=== PATIENT | male | born 1990 | race Asian ===

== ENCOUNTER 2017-02-01 07:22 | Emergency (ER) | payer OTHER ==
[2017-02-01 07:26] VITALS: BP 156/98
[2017-02-01] MEDS ORDERED: DEXAMETHASONE 10 MG/ML VIAL PO STA (08:03)
[2017-02-01] MEDS ORDERED: HYDROcod/ACETAM 5/325 MG TABLET PO STA (08:03)
[2017-02-01] MEDS ORDERED: AMOXICILLIN 250 MG CAPSULE PO STA (08:03)
--- NOTE | 2017-02-01 08:08 | ED Physician Documentation ---
History of Present Illness - Stated complaint Stated Complaint: SWOLLEN FACE - Chief complaint Chief Complaint: Heent - Additonal information Additional information: hx from pt 26 male upper right premolar cavity for about a month he applied a temp cavity he got at the store it eventually fell out and he applied a new one last night but now has inc pain and sig facial swelling no dental insurance otherwise healthy Review of Systems Constitutional: denies: Fever, Chills Throat: reports: Dental pain / toothache Immunocompromised: denies: Immunocompromised PD PAST MEDICAL HISTORY - Past Medical History Cardiovascular: Hypertension Respiratory: Asthma Neuro: None Endocrine/Autoimmune: None GI: None : None HEENT: None Psych: None Musculoskeletal: None Derm: None - Past Surgical History Past Surgical History: No - Present Medications Home Medications: Ambulatory Orders Medication Instructions Recorded Confirmed Amoxicillin 500 mg PO Q8H #30 capsule 02/01/17 HYDROcod/ACETAM 5/325 [Hennessey 5/325] 1 ea PO Q6H PRN #10 tablet 02/01/17 - Allergies Allergies/Adverse Reactions: Allergies Allergy/AdvReac Type Severity Reaction Status Date / Time Sulfa (Sulfonamide Allergy Unknown Verified 12/18/14 11:44 Antibiotics) - Social History Does the pt smoke?: Yes Smoking Status: Current every day smoker Does the pt drink ETOH?: Yes Does the pt have substance abuse?: No - Immunizations Immunizations are current?: No PD ED PE NORMAL - Vitals Vital signs reviewed: Yes - General General: Alert and oriented X 3 - HEENT HEENT: Other (upper right premolar tender with visible cavit type fillin, gum and buccal fold erythema without clear abscess to drain, no trismus, r cheek swelling, no submandibular or neck swelling) - Cardiac Cardiac: RRR - Respiratory Respiratory: No respiratory distress, Clear bilaterally Results - Vitals Vitals: Vital Signs - 24 hr 02/01/17 07:24 Heart Rate 74 Respiratory 18 Rate Blood Pressure 156/98 H O2 Saturation 100 Oxygen O2 Source Room air Departure - Departure Disposition: 01 Home, Self Care Clinical Impression: Dental abscess Condition: Good Instructions: ED Dental Abscess Facial Cellulitis Prescriptions: Amoxicillin 500 mg PO Q8H #30 capsule HYDROcod/ACETAM 5/325 [Hennessey 5/325] 1 ea PO Q6H PRN #10 tablet PRN Reason: Severe Pain Comments: Recommend you follow up with Jad Johnson in [place] or Dr Pollard for further care - the antibiotics will only be a temporary fix. Return if worse Also please get your blood pressure rechecked - it was high today Forms: Activity restrictions
[2017-02-01] MEDS ORDERED: AMOXICILLIN 250 MG CAPSULE PO ONE (08:16)
[2017-02-01] MEDS ORDERED: DEXAMETHASONE 10 MG/ML VIAL ONE (08:16)
[2017-02-01] MEDS ORDERED: HYDROcod/ACETAM 5/325 MG TABLET ONE (08:17)
== END 2017-02-01 08:23 | disposition home or self-care (01) ==
LOC: ED 07:22
DX: K04.7 Periapical abscess without sinus (principal); I10 Essential (primary) hypertension; J45.909 Unspecified asthma, uncomplicated; F17.200 Nicotine dependence, unspecified, uncomplicated
CPT/HCPCS: 99283; A9270

== ENCOUNTER 2018-03-26 23:09 | Emergency (ER) | payer OTHER ==
--- NOTE | 2018-03-27 00:21 | ED Physician Documentation ---
History of Present Illness - Stated complaint Stated Complaint: LT KNEE PAIN - Chief complaint Chief Complaint: Ext Problem - History obtained from History obtained from: Patient - History of Present Illness Timing: Enter time (16:00), Today Pain level max: 8 (with movement) Pain level now: 4 Improved by: rest Worsened by: movement of left knee - Additonal information Additional information: c/o gradual onswt, atraumatic left knee pain since this afternoon. 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 however, no new or particularly prolonged activity lately. denies fever/chills/sweats.has been taking ibuprofen without adequate relief. Review of Systems Constitutional: reports: Reviewed and negative Skin: denies: Rash Musculoskeletal: reports: Joint pain (left knee), Joint swelling (trace, left knee), Pain with weight bearing. denies: Extremity pain, Extremity swelling Neurologic: denies: Focal weakness, Numbness PD PAST MEDICAL HISTORY - Past Medical History Past Medical History: No Cardiovascular: Hypertension Respiratory: Asthma Neuro: None Endocrine/Autoimmune: None GI: None : None HEENT: None Psych: None Musculoskeletal: None Derm: None - Past Surgical History Past Surgical History: No - Present Medications Home Medications: Ambulatory Orders Medication Instructions Recorded Confirmed Acetaminophen 1,000 mg PO Q8H PRN 03/28/18 03/28/18 Albuterol Sulfate [Proair Hfa 2 puffs INH Q4H PRN 03/28/18 03/28/18 Inhaler] Ibuprofen 800 mg PO Q8H PRN 03/28/18 03/28/18 - Allergies Allergies/Adverse Reactions: Allergies Allergy/AdvReac Type Severity Reaction Status Date / Time egg Allergy Hives Verified 03/28/18 10:04 Sulfa (Sulfonamide Allergy Unknown Verified 03/28/18 10:03 Antibiotics) - Social History Does the pt smoke?: No Smoking Status: Never smoker Does the pt drink ETOH?: No Does the pt have substance abuse?: No - Immunizations Immunizations are current?: No - POLST Patient has POLST: No PD ED PE NORMAL - Vitals Vital signs reviewed: Yes - General General: Alert and oriented X 3, No acute distress (NAD at rest, appears to have painful discomfort with movement involving left knee), Well developed/nourished - Derm Derm: Normal color, Warm and dry, No rash - Neuro Neuro: No motor deficit, No sensory deficit PD ED PE EXPANDED - Extremities Extremities: Limited ROM (cannot completely flex due to pain (left knee)), Other (Left knee: mild tenderness to palpation immediately inferior (distal/caudal) to patella. There is trace, subtle effusion of knee joint, minimal increased warmth of the joint (only noted when compared to right knee). No crepitus, no erythema. ). No: Red warm joint Results - Vitals Vitals: Oxygen O2 Source Room air PD MEDICAL DECISION MAKING - ED course Complexity details: considered differential, d/w patient ED course: differential considered includes, but nit necessarily limited to, infrapatellar bursitis, patellar tendonitis. at this time, not enough evidence to suspect gouty arthritic, septic arthritis, septic bursitis, cellulitis. patient instructed to return immediately if worse in any way or new signs/symptoms develop (such as fever, redness, joint becomes more swollen and/or hot to touch, increasing pain especially if it becomes refractory to the prescribed medication). Departure - Departure Disposition: 01 Home, Self Care Clinical Impression: Knee pain, left Condition: Good Instructions: ED Bandage Elastic Wrap, ED Crutch Walking, ED Knee Pain UKO Follow-Up: [facility] [Provider Group] [facility] [Provider Group] Forms: Activity restrictions Discharge Date/Time: 03/27/18 01:05
[2018-03-27] MEDS ORDERED: oxyCODONE 5 MG TABLET PO STA (00:44)
[2018-03-27 00:54] VITALS: BP 154/99
== END 2018-03-27 01:05 | disposition home or self-care (01) ==
LOC: ED 23:09
DX: M25.562 Pain in left knee (principal); I10 Essential (primary) hypertension
CPT/HCPCS: 99283; A9270

== ENCOUNTER 2018-03-28 09:56 | Inpatient (IN) | payer OTHER ==
[2018-03-28] MEDS ORDERED: HYDROmorphone 1 MG/ML CARPUJECT IVP STA ×2 (10:59→13:06)
[2018-03-28] MEDS ORDERED: SODIUM CHLORIDE 0.9% 1,000 ML IV ONE (10:59)
[2018-03-28] MEDS ORDERED: ONDANSETRON 4 MG/2 ML VIAL IVP STA (10:59)
[2018-03-28] MEDS ORDERED: LORazepam 2 MG/ML VIAL IVP STA ×3 (11:00→13:06)
--- NOTE | 2018-03-28 11:05 | ED Physician Documentation ---
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 but no specific injury inc knee pain since weekend since then the knee has gotten progressively sig worse now red swollen and hot he cannot move it at all subj fever at home Review of Systems Constitutional: reports: Fever (subj) Cardiac: denies: Chest pain / pressure Respiratory: denies: Dyspnea GI: denies: Abdominal Pain Musculoskeletal: reports: Joint pain Neurologic: denies: Focal weakness, Numbness Immunocompromised: denies: Immunocompromised PD PAST MEDICAL HISTORY - Past Medical History Past Medical History: Yes Cardiovascular: Hypertension Respiratory: Asthma Neuro: None Endocrine/Autoimmune: None GI: None : None HEENT: None Psych: None Musculoskeletal: None Derm: None - Past Surgical History Past Surgical History: No - Present Medications Home Medications: Ambulatory Orders Medication Instructions Recorded Confirmed Acetaminophen 1,000 mg PO Q8H PRN 03/28/18 03/28/18 Albuterol Sulfate [Proair Hfa 2 puffs INH Q4H PRN 03/28/18 03/28/18 Inhaler] Ibuprofen 800 mg PO Q8H PRN 03/28/18 03/28/18 - Allergies Allergies/Adverse Reactions: Allergies Allergy/AdvReac Type Severity Reaction Status Date / Time egg Allergy Hives Verified 03/28/18 10:04 Sulfa (Sulfonamide Allergy Unknown Verified 03/28/18 10:03 Antibiotics) - Social History Does the pt smoke?: No Smoking Status: Never smoker Does the pt drink ETOH?: No Does the pt have substance abuse?: No - Immunizations Immunizations are current?: No - POLST Patient has POLST: No PD ED PE NORMAL - Vitals Vital signs reviewed: Yes (tachy but afebrile) - Neck Neck: Supple, no meningeal sign - Cardiac Cardiac: RRR - Respiratory Respiratory: No respiratory distress - Abdomen Abdomen: Soft, Non tender - Extremities Extremities: Other (L knee: hot, red warm, swollen diffusely not just prepatellar/bursae, unable to move without excruciating pain, MSV intact) Results - Vitals Vitals: Vital Signs - 24 hr 03/28/18 03/28/18 03/28/18 10:00 10:30 11:22 Temperature 36.1 C L Heart Rate 132 H 95 79 Respiratory 20 14 14 Rate Blood Pressure 124/73 148/93 H 143/97 H O2 Saturation 97 98 99 03/28/18 03/28/18 11:49 12:42 Temperature Heart Rate 86 99 Respiratory 12 14 Rate Blood Pressure 128/78 145/87 H O2 Saturation 99 99 Oxygen O2 Source Room air - Labs Labs: Microbiology 03/28/18 13:21 Neisseria gonorrhoeae Culture - Preliminary Other - Other 03/28/18 13:17 Body Fluid Culture - Preliminary Synovial Fluid 03/28/18 13:11 Wound Culture - Preliminary Knee - Left Laboratory Tests 03/28/18 03/28/18 03/28/18 11:15 11:15 11:15 WBC 13.8 H RBC 4.90 Hgb 14.7 Hct 42.4 MCV 86.5 MCH 30.1 MCHC 34.8 RDW 13.0 Plt Count 188 MPV 8.5 Neut # (Auto) 10.7 H Lymph # (Auto) 1.7 [place] # (Auto) 1.0 Eos # (Auto) 0.2 Baso # (Auto) 0.2 H Absolute Nucleated RBC 0.00 Nucleated RBC % 0.0 ESR 20 H Sodium 138 Potassium 4.6 Chloride 102 Carbon Dioxide 28 Anion Gap 8.0 BUN 11 Creatinine 1.0 Estimated GFR (MDRD) 91 Glucose 132 H Calcium 9.3 C-Reactive Protein Fluid Source Fluid Color Fluid Clarity Fluid WBC Fluid RBC Fluid Neutrophils % Fluid Lymphocytes % Fluid Monocytes % Fld Mesothelial Cell % Fluid Crystals 03/28/18 03/28/18 03/28/18 11:15 13:17 13:17 WBC RBC Hgb Hct MCV MCH MCHC RDW Plt Count MPV Neut # (Auto) Lymph # (Auto) [place] # (Auto) Eos # (Auto) Baso # (Auto) Absolute Nucleated RBC Nucleated RBC % ESR Sodium Potassium Chloride Carbon Dioxide Anion Gap BUN Creatinine Estimated GFR (MDRD) Glucose Calcium C-Reactive Protein 9.6 H Fluid Source SYNOVIAL Fluid Color YELLOW Fluid Clarity CLEAR Fluid WBC 77 Fluid RBC 50 Fluid Neutrophils % 12 Fluid Lymphocytes % 17 Fluid Monocytes % 71 Fld Mesothelial Cell % Not Reportable Fluid Crystals NONE SEEN - Rads (name of study) knee Radiology: See rad report (STS no effusion) PD MEDICAL DECISION MAKING - ED course ED course: red hot diffusely swollen knee unable to flex with subj fever tachycardia elev WBC and CR and sed rate 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 but not isolated to bursae attempted arthrocentesis from lateral aspect where there was less erythema, dry tap consulted ortho Dr Fernando who promptly came to see pt he feels like this is may prepatellar bursitis with associated cellulitis he aspirated bursae (minimal bloody fluid no pus sent to lab as blue top culture swab) and also aspirated knee obtaining approx 10 cc of clear yellow fluid - send for cell count gram stain cx GC/chlamydia and crystals I spoke to lab directly to make sure they knew what cultures and tests came from where Dr Fernando rec admit to hospitalist for IV ab such as vanco zosyn I spoke to hospitalist at 1320 and will admit to inpt Departure - Departure Disposition: 66 [facility] DC/Xfer Clinical Impression: Infection of knee Condition: Good Discharge Date/Time: 03/28/18 15:51
[2018-03-28] MEDS ORDERED: LIDOCAINE 1%-EPI 1:100000 30 ML MDV SUBQ STA (11:11)
[2018-03-28 11:26] LABS: BASOPHILS # (AUTO) 0.2 10^3/uL (0.0-0.1); BASOPHILS % (AUTO) 1.1 %; EOSINOPHILS # (AUTO) 0.2 10^3/uL (0.0-0.7); EOSINOPHILS % (AUTO) 1.6 %; HGB - HEMOGLOBIN 14.7 g/dL (14.0-18.0); LYMPHOCYTES # (AUTO) 1.7 10^3/uL (1.5-3.5); LYMPHOCYTES % (AUTO) 12.2 %; MEAN CORPUSCULAR HEMOGLOBIN 30.1 pg (27.0-31.0); MEAN CORPUSCULAR HGB CONC 34.8 g/dL (32.0-36.0); MEAN CORPUSCULAR VOLUME 86.5 fL (80.0-94.0); MEAN PLATELET VOLUME 8.5 fL (7.4-11.4); MONOCYTES % (AUTO) 7.5 %; NEUTROPHILS # (AUTO) 10.7 10^3/uL (1.5-6.6); NEUTROPHILS % (AUTO) 77.6 %; PLT - PLATELET COUNT 188 10^3/uL (130-450); WHITE BLOOD COUNT 13.8 x10^3/uL (4.8-10.8)
[2018-03-28 11:35] LABS: CALCIUM 9.3 mg/dL (8.5-10.3)
--- NOTE | 2018-03-28 11:42 | XRAY Report ---
Reason: knee pain infection Procedure Date: 03/28/2018 Accession Number: [id number] / [id number] Procedure: XR - Knee 2 View LT CPT Code: FULL RESULT: EXAM: LEFT KNEE RADIOGRAPHY EXAM DATE: 03/28/2018 11:16 AM. CLINICAL HISTORY: Knee pain infection. COMPARISON: Tibia-fibula 09/08/2006. TECHNIQUE: 3 views. FINDINGS: Bones: No fractures or bone lesions. Joints: No effusion. No subluxations. Soft Tissues: There is prepatellar soft tissue swelling. No soft tissue air is appreciated. IMPRESSION: Prepatellar soft tissue swelling. No other acute findings. RADIA
[2018-03-28] MEDS ORDERED: PIPERACILLIN/TAZOBACTAM 3.375 GM in SODIUM CHLORIDE 0.9% MINIBAG 100 ML IV STA (12:53)
[2018-03-28] MEDS ORDERED: VANCOMYCIN INJ 1 GM in SODIUM CHLORIDE 0.9% 500 ML IV STA (12:53)
[2018-03-28] MEDS ORDERED: LIDOCAINE 1% 2 ML VIAL ONE (12:56)
[2018-03-28] MEDS ORDERED: HYDROmorphone 2 MG/ML VIAL ONE (13:07)
[2018-03-28] MEDS ORDERED: LORazepam 2 MG/ML VIAL ONE (13:07)
[2018-03-28] MEDS ORDERED: NICOTINE 7 MG PATCH TOP STA (13:53)
[2018-03-28] MEDS ORDERED: VANCOMYCIN INJ 2 GM in SODIUM CHLORIDE 0.9% 500 ML IV STA (13:59)
[2018-03-28] MEDS ORDERED: PROCHLORPERAZINE 10 MG/2 ML VIAL IVP PRN (14:15)
[2018-03-28] MEDS ORDERED: ONDANSETRON ODT 4 MG TABLET TL PRN (14:15)
[2018-03-28] MEDS ORDERED: SODIUM CHLORIDE FLUSH 0.9% 10 ML SYRINGE IVP PRN (14:15)
[2018-03-28] MEDS ORDERED: ZOLPIDEM 5 MG TABLET PO PRN (14:15)
[2018-03-28] MEDS ORDERED: KETOROLAC 15 MG/ML VIAL IVP PRN (14:20)
[2018-03-28] MEDS ORDERED: hydrALAZINE INJ 20 MG/ML VIAL IVP PRN (14:22)
--- NOTE | 2018-03-28 14:25 | HISTORY & PHYSICAL EXAMINATION ---
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 Patient was tachy in ED HR 132, non-tachypenic non-hypoxemic and normotensive. Labs shows lytes and renal function preserved. Patient to be admitted for further eval, mgmt and tx. History - Past Medical History Cardiovascular: reports: Hypertension. denies: Congestive heart failure, High cholesterol, Peripheral Vascular Disease Respiratory: reports: Asthma. denies: Tuberculosis Neuro: reports: None Endocrine/Autoimmune: reports: None. denies: Type 1 diabetes GI: reports: None. denies: GERD, Esophageal varices, GI bleed, Pancreatitis, Cholelithiasis, Ulcerative colitis, Crohn's disease : reports: None. denies: Nocturia, Kidney stones HEENT: reports: None Psych: reports: None Musculoskeletal: reports: None. denies: Fibromyalgia, Rheumatoid arthritis, Chronic back pain Derm: reports: None. denies: Herpes zoster, Eczema, Psoriasis, Rosacea MRSA Hx?: No - Family & Social History Living arrangement: At home Living Situation: Unknown Social History Notes: Has recently moved here from [place]. - Substance History Use: Uses substance without health or social issues: NONE Abuse: Recurrent use of substance despite neg consequences: NONE Dependence: Experiences withdrawal or developed tolerances: NONE - POLST Patient has POLST: No POLST Status: Full Code Meds/Allgy - Home Medications Home Medications: Ambulatory Orders Medication Instructions Recorded Confirmed Acetaminophen 1,000 mg PO Q8H PRN 03/28/18 03/28/18 Albuterol Sulfate [Proair Hfa 2 puffs INH Q4H PRN 03/28/18 03/28/18 Inhaler] Ibuprofen 800 mg PO Q8H PRN 03/28/18 03/28/18 - Allergies Allergies/Adverse Reactions: Allergies Allergy/AdvReac Type Severity Reaction Status Date / Time egg Allergy Hives Verified 03/28/18 10:04 Sulfa (Sulfonamide Allergy Unknown Verified 03/28/18 10:03 Antibiotics) Review of Systems - Constitutional Constitutional: reports: Weakness - Cardiovascular Cariovascular: denies: Palpitations, Chest pain - Respiratory Respiratory: denies: Cough, Wheezing, Hemoptysis - Gastrointestinal Gastrointestinal: denies: Abdominal pain - Genitourinary Genitourinary: denies: Dysuria, Frequency, Urgency, Hematuria, Flank pain - Integumentary Integumentary: denies: Rash, Lesions - Neurological Neurological: denies: General weakness - Psychiatric Psychiatric: denies: Anxiety, Suicidal - Endocrine Endocrine: denies: Polyuria, Polydypsia, Polyphagia - Hematologic/Lymphatic Hematologic/Lymphatic: denies: Anemia, Bruising, Petechiae, Lymphadenopathy - All Other Systems All Other Systems: reports: Reviewed and negative Prior Level of Functionality: Patient was ambulatory w/o any assisted device. Exam - Vital Signs Vital Signs: Vital Signs x48h Temp Pulse Resp BP Pulse Ox 03/28/18 12:42 99 14 145/87 H 99 03/28/18 11:49 86 12 128/78 99 03/28/18 11:22 79 14 143/97 H 99 03/28/18 10:30 95 14 148/93 H 98 03/28/18 10:00 36.1 C L 132 H 20 124/73 97 Conclusion/Plan - Problem List (1) Cellulitis of knee, left Conclusion/Plan: Likely self-inoculated with constantly being on knees and had maybe an abrasion. Unknown MRSA carrier would swab nares for MRSA. Would continue with IV clindamycin to cover for community MRSA/anaerobes, since arthrocentesis joint aspirate shows G+coci, many wbc's, GC no organism. IV dilaudid, iv torodol, ibuprofen prn, observe for hemarthrosis since he will be on heparin for dvt ppx, mobility to be an issue, will assess the need for PT. (2) Septic joint of left knee joint Conclusion/Plan: Suspected Community-acquired staph likely, MRSA/MSSA and or aneerobes to be covered with IV clindamycin. Pain control to continue. Will follow cultures to ID organism. Qualifiers: Septic arthritis organism: due to unspecified organism Qualified Code(s): M00.9 - Pyogenic arthritis, unspecified (3) Tachycardia Conclusion/Plan: Now resolved. IVFs to continue, sec to active infection. Will continue to follow, no hx IVDU or murmurs on exam. (4) Acute renal insufficiency Conclusion/Plan: Likely sec to insensible losses from subjected fevers at home. cr 1.0 unknown baseline. LR to run at 100 ml/hr. Renal function panel to follow. - Lab Results Fish Bones: 03/28/18 11:15 03/28/18 11:15 - Diagnostic Imaging Results Diagnostic Imaging Results: positive: Final report reviewed - EKG Results EKG Interpreted Independently: No Core Measures - Anticipated LOS I expect patient to be DC'd or transferred within 96 hours.: Yes - Issues Hospital Issues and Management Plan: Mobility to be addressed with PT if infection is persistent, contingent on resolution of severe left knee cellulites with septic joint. - DVT/VTE - Prophylaxis VTE/DVT Device ordered at admit?: No Not Ordered - Medical Reason: Contraindicated (active left septic knee with edema) VTE/DVT Prophylaxis med ordered at admit?: Yes - Stroke - Rehab Assessment Rehab services assessment to be ordered?: No - AMI - Statin at Admit Aspirin Prescribed on Admit: No
[2018-03-28] MEDS ORDERED: LACTATED RINGERS 1,000 ML IV SCH (15:00)
[2018-03-28] MEDS ORDERED: HEPARIN 5,000 UNIT/ML VIAL SUBQ SCH (15:00)
[2018-03-28 15:16] LABS: CC,BF RBC 50 /mm^3
[2018-03-28] MEDS ORDERED: ALBUTEROL NEB 2.5 MG/3 ML INH PRN (15:36)
[2018-03-28 15:48] LABS: BF COLOR YELLOW; BF SOURCE SYNOVIAL
[2018-03-28 16:25] LABS: LYMPHOCYTES %,BODY FLUID 17; MONOCYTES %,BODY FLUID 71 %
[2018-03-28] MEDS: HEPARIN 5,000 UNIT/ML VIAL SUBQ SCH ×3 (16:45→22:25)
[2018-03-28] MEDS: HYDROmorphone 2 MG/ML VIAL IVP PRN ×2 (16:46→21:06)
[2018-03-28] MEDS: KETOROLAC 30 MG/ML VIAL IVP PRN (16:47)
[2018-03-28] MEDS: LACTATED RINGERS 1,000 ML IV SCH (16:49)
[2018-03-28] MEDS: SODIUM CHLORIDE FLUSH 0.9% 10 ML SYRINGE IVP SCH (16:49)
[2018-03-28] MEDS ORDERED: CLINDAMYCIN 900 MG/50 ML 50 ML IV SCH (18:00)
[2018-03-28] MEDS: HYDROcod/ACETAM 5/325 MG TABLET PO PRN (18:39)
[2018-03-28] MEDS ORDERED: VANCOMYCIN INJ 1 GM in SODIUM CHLORIDE 0.9% 250 ML IV SCH (20:00)
[2018-03-28] MEDS ORDERED: VANCOMYCIN PER PHARMACY 1 GM in SODIUM CHLORIDE 0.9% 250 ML IV SCH (21:00)
[2018-03-28] MEDS: FAMOTIDINE 20 MG TABLET PO SCH (21:06)
[2018-03-28] MEDS ORDERED: VANCOMYCIN PER PHARMACY 0.1 GM in SODIUM CHLORIDE 0.9% 250 ML IV SCH (21:55)
--- NOTE | 2018-03-28 21:58 | CONSULTATION NOTE ---
DATE OF SERVICE: 03/28/2018 Physician: Luis Fernando Fernando MD REASON FOR CONSULTATION: Swelling, redness, and pain, left knee. HISTORY OF PRESENT ILLNESS: Mr. 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 He did not have x-rays, cultures, or antibiotics given. He had increasing pain, re dness and swelling of his knee to the point that he could not go to work. He was having increasing d ifficulty moving his knee and walking. The patient was evaluated in the ER and an attempt was made a t knee aspiration at the anterior inferior portal site, which was negative by Dr. Womack and Dr. Beto apple. They asked me to come and evaluate the patient and re-aspirate his knee. The patient's medical history is documented by the ER physicians. He reports that he is healthy that he has not had a pro pensity to infections. He has had a previous broken leg on the left side treated in his youth with i mmobilization with no untoward side effects later. He has not had any cuts or penetrating injury elizabeth und the knee. Examination showed this patient to be moderately obese. He is lying in bed. He did seem to have sym ptoms out of proportion to the findings at his knee where there was a cellulitis inferior to the ocasio lla and spreading to the medial and lateral sides of the knee, warmth, and a boggy sensation over the infrapatellar bursa. The patient did not have a palpable effusion in the knee and had generalized t enderness that precluded much in the way of palpation or exam because the patient was claiming such s evere pain. He had no adenopathy of his groin. No streaks running up towards the knee or running do wnward. He did not have edema in his extremity and had a normal neurovascular exam. IMAGING STUDIES: X-rays were reviewed and he did not have a knee effusion and had a normal-appearing knee joint with some anterior prepatellar soft tissue swelling and no gas. IMPRESSION: The patient has a soft tissue infection involving the prepatellar or infrapatellar tissu es. He does not appear to have a knee joint infection. I recommended aspiration of the infrapatella r bursal area and proceeded to do so with an 18-gauge needle after blocking with lidocaine. The florencio ent is needle-phobic and not very cooperative and crying out in pain even when I am trying to aspirat e through a previously blocked area. A small amount of bloody fluid was obtained enough to place on a culture swab only. No purulence was encountered. After this was completed, a secondary superior l ateral aspiration was performed with an 18 gauge needle and 12 mL syringe after a preinjection of lid ocaine, and this aspiration brought out completely normal and clear approximately 5 mL of synovial fl uid. The patient's previous aspiration attempts had been in the cellulitic zone at an inferior later al site 4 to 5 inches below where my aspiration was performed. The patient has a soft tissue infrapatellar bursitis infection without abscess or fluid collection. He does not have a septic knee by exam or by analysis of fluid. PLAN: Recommendation is that he be admitted to the hospital under the hospitalist team for IV antibi otic treatment. He will be observed by Orthopedics on an ongoing fashion to ensure that he does not progress to abscess formation. TD: 03/28/2018 14:10
[2018-03-28] MEDS: VANCOMYCIN INJ 2 GM in SODIUM CHLORIDE 0.9% 500 ML IV SCH (22:06)
[2018-03-28] MEDS: IBUPROFEN 600 MG TABLET PO PRN (22:07)
[2018-03-29] MEDS: HYDROcod/ACETAM 5/325 MG TABLET PO PRN ×6 (00:20→21:13)
[2018-03-29] MEDS: SODIUM CHLORIDE FLUSH 0.9% 10 ML SYRINGE IVP SCH ×3 (00:32→10:53)
[2018-03-29] MEDS: KETOROLAC 30 MG/ML VIAL IVP PRN ×2 (04:56→10:49)
[2018-03-29] MEDS: LACTATED RINGERS 1,000 ML IV SCH ×2 (04:56→19:59)
[2018-03-29 05:38] LABS: BASOPHILS # (AUTO) 0.1 10^3/uL (0.0-0.1); BASOPHILS % (AUTO) 0.9 %; EOSINOPHILS # (AUTO) 0.5 10^3/uL (0.0-0.7); EOSINOPHILS % (AUTO) 4.9 %; HGB - HEMOGLOBIN 13.7 g/dL (14.0-18.0); LYMPHOCYTES # (AUTO) 2.2 10^3/uL (1.5-3.5); LYMPHOCYTES % (AUTO) 21.2 %; MEAN CORPUSCULAR HGB CONC 34.1 g/dL (32.0-36.0); MEAN CORPUSCULAR VOLUME 87.9 fL (80.0-94.0); MEAN PLATELET VOLUME 8.6 fL (7.4-11.4); MONOCYTES # (AUTO) 1.1 10^3/uL (0.0-1.0); NEUTROPHILS # (AUTO) 6.4 10^3/uL (1.5-6.6); PLT - PLATELET COUNT 185 10^3/uL (130-450); RED BLOOD COUNT 4.58 10^6/uL (4.70-6.10); WHITE BLOOD COUNT 10.4 x10^3/uL (4.8-10.8)
[2018-03-29 05:52] LABS: ALBUMIN 3.4 g/dL (3.2-5.5); ALBUMIN/GLOBULIN RATIO 1.1 (1.0-2.2); BILIRUBIN,TOTAL 0.5 mg/dL (0.2-1.0); CALCIUM 8.6 mg/dL (8.5-10.3); CREATININE 0.7 mg/dL (0.6-1.2); TOTAL PROTEIN 6.4 g/dL (6.7-8.2)
[2018-03-29] MEDS: HEPARIN 5,000 UNIT/ML VIAL SUBQ SCH (06:51)
[2018-03-29] MEDS: VANCOMYCIN INJ 2 GM in SODIUM CHLORIDE 0.9% 500 ML IV SCH ×3 (06:52→23:48)
--- NOTE | 2018-03-29 08:16 | PROVIDER PROGRESS NOTE ---
Subjective - General Admit Date: 03/28/18 - Review of Systems Wound/Incisions: positive: No drainage, Erythema improving Musculoskeletal: positive: Joint pain, Joint swelling (Much improved overnight) All Other Systems: positive: Reviewed and negative Objective - Patient Data Reviewed Vital Signs: Yes Weight: Weight 03/27/18 03/28/18 03/29/18 23:59 23:59 23:59 Weight (kg) 121 kg Intake & Output: Intake and Output Totals x24h 03/27/18 03/28/18 03/29/18 23:59 23:59 23:59 Intake Total 1850 2001.667 Output Total 775 1000 Balance 1075 1001.667 - Lab Results Lab Results: 03/29/18 05:10 03/29/18 05:10 Other Lab Results: Lab Results x24hrs 03/29/18 03/29/18 03/28/18 Range/Units 05:10 05:10 13:17 WBC 10.4 (4.8-10.8) x10^3/uL RBC 4.58 L (4.70-6.10) 10^6/uL Hgb 13.7 L (14.0-18.0) g/dL Hct 40.2 L (42.0-52.0) % MCV 87.9 (80.0-94.0) fL MCH 30.0 (27.0-31.0) pg MCHC 34.1 (32.0-36.0) g/dL RDW 13.0 (12.0-15.0) % Plt Count 185 (130-450) 10^3/uL MPV 8.6 (7.4-11.4) fL Neut # (Auto) 6.4 (1.5-6.6) 10^3/uL Lymph # (Auto) 2.2 (1.5-3.5) 10^3/uL [place] # (Auto) 1.1 H (0.0-1.0) 10^3/uL Eos # (Auto) 0.5 (0.0-0.7) 10^3/uL Baso # (Auto) 0.1 (0.0-0.1) 10^3/uL Absolute Nucleated RBC 0.01 x10^3/uL Nucleated RBC % 0.1 /100WBC ESR (0-15) mm/Hr Sodium 140 (135-145) mmol/L Potassium 4.0 (3.5-5.0) mmol/L Chloride 108 (101-111) mmol/L Carbon Dioxide 27 (21-32) mmol/L Anion Gap 5.0 L (6-13) BUN 12 (6-20) mg/dL Creatinine 0.7 (0.6-1.2) mg/dL Estimated GFR (MDRD) 137 (>89) Glucose 119 H (70-100) mg/dL Calcium 8.6 (8.5-10.3) mg/dL Total Bilirubin 0.5 (0.2-1.0) mg/dL AST 17 (10-42) IU/L ALT 29 (10-60) IU/L Alkaline Phosphatase 64 (42-121) IU/L C-Reactive Protein (0-1.0) mg/dL Total Protein 6.4 L (6.7-8.2) g/dL Albumin 3.4 (3.2-5.5) g/dL Globulin 3.0 (2.1-4.2) g/dL Albumin/Globulin Ratio 1.1 (1.0-2.2) Fluid Source Fluid Color Fluid Clarity Fluid WBC /mm^3 Fluid RBC /mm^3 Fluid Neutrophils % % Fluid Lymphocytes % Fluid Monocytes % % Fld Mesothelial Cell % Fluid Crystals NONE SEEN (N) 03/28/18 03/28/18 03/28/18 Range/Units 13:17 11:15 11:15 WBC (4.8-10.8) x10^3/uL RBC (4.70-6.10) 10^6/uL Hgb (14.0-18.0) g/dL Hct (42.0-52.0) % MCV (80.0-94.0) fL MCH (27.0-31.0) pg MCHC (32.0-36.0) g/dL RDW (12.0-15.0) % Plt Count (130-450) 10^3/uL MPV (7.4-11.4) fL Neut # (Auto) (1.5-6.6) 10^3/uL Lymph # (Auto) (1.5-3.5) 10^3/uL [place] # (Auto) (0.0-1.0) 10^3/uL Eos # (Auto) (0.0-0.7) 10^3/uL Baso # (Auto) (0.0-0.1) 10^3/uL Absolute Nucleated RBC x10^3/uL Nucleated RBC % /100WBC ESR 20 H (0-15) mm/Hr Sodium (135-145) mmol/L Potassium (3.5-5.0) mmol/L Chloride (101-111) mmol/L Carbon Dioxide (21-32) mmol/L Anion Gap (6-13) BUN (6-20) mg/dL Creatinine (0.6-1.2) mg/dL Estimated GFR (MDRD) (>89) Glucose (70-100) mg/dL Calcium (8.5-10.3) mg/dL Total Bilirubin (0.2-1.0) mg/dL AST (10-42) IU/L ALT (10-60) IU/L Alkaline Phosphatase (42-121) IU/L C-Reactive Protein 9.6 H (0-1.0) mg/dL Total Protein (6.7-8.2) g/dL Albumin (3.2-5.5) g/dL Globulin (2.1-4.2) g/dL Albumin/Globulin Ratio (1.0-2.2) Fluid Source SYNOVIAL Fluid Color YELLOW Fluid Clarity CLEAR Fluid WBC 77 /mm^3 Fluid RBC 50 /mm^3 Fluid Neutrophils % 12 % Fluid Lymphocytes % 17 Fluid Monocytes % 71 % Fld Mesothelial Cell % Not Reportable Fluid Crystals (N) 03/28/18 03/28/18 Range/Units 11:15 11:15 WBC 13.8 H (4.8-10.8) x10^3/uL RBC 4.90 (4.70-6.10) 10^6/uL Hgb 14.7 (14.0-18.0) g/dL Hct 42.4 (42.0-52.0) % MCV 86.5 (80.0-94.0) fL MCH 30.1 (27.0-31.0) pg MCHC 34.8 (32.0-36.0) g/dL RDW 13.0 (12.0-15.0) % Plt Count 188 (130-450) 10^3/uL MPV 8.5 (7.4-11.4) fL Neut # (Auto) 10.7 H (1.5-6.6) 10^3/uL Lymph # (Auto) 1.7 (1.5-3.5) 10^3/uL [place] # (Auto) 1.0 (0.0-1.0) 10^3/uL Eos # (Auto) 0.2 (0.0-0.7) 10^3/uL Baso # (Auto) 0.2 H (0.0-0.1) 10^3/uL Absolute Nucleated RBC 0.00 x10^3/uL Nucleated RBC % 0.0 /100WBC ESR (0-15) mm/Hr Sodium 138 (135-145) mmol/L Potassium 4.6 (3.5-5.0) mmol/L Chloride 102 (101-111) mmol/L Carbon Dioxide 28 (21-32) mmol/L Anion Gap 8.0 (6-13) BUN 11 (6-20) mg/dL Creatinine 1.0 (0.6-1.2) mg/dL Estimated GFR (MDRD) 91 (>89) Glucose 132 H (70-100) mg/dL Calcium 9.3 (8.5-10.3) mg/dL Total Bilirubin (0.2-1.0) mg/dL AST (10-42) IU/L ALT (10-60) IU/L Alkaline Phosphatase (42-121) IU/L C-Reactive Protein (0-1.0) mg/dL Total Protein (6.7-8.2) g/dL Albumin (3.2-5.5) g/dL Globulin (2.1-4.2) g/dL Albumin/Globulin Ratio (1.0-2.2) Fluid Source Fluid Color Fluid Clarity Fluid WBC /mm^3 Fluid RBC /mm^3 Fluid Neutrophils % % Fluid Lymphocytes % Fluid Monocytes % % Fld Mesothelial Cell % Fluid Crystals (N) - Current Medications Current Medications: Current Medications Generic Name Dose Route Start Last Admin Trade Name Freq PRN Reason Stop Dose Admin Hydrocodone Bitart/Acetaminophen 1 tab 03/28/18 14:15 03/29/18 04:56 [place] 5/325 PO 1 tab Q4HR PRN Administration Pain 5 to 7 Famotidine 20 mg 10/24/18 21:00 03/28/18 21:06 Pepcid PO 20 mg BID KAREN Administration Heparin Sodium (Porcine) 5,000 unit 03/28/18 22:22 03/29/18 06:51 SUBQ 5,000 unit Q8H KAREN Administration Hydromorphone HCl 2 mg 03/28/18 15:35 03/28/18 21:06 Dilaudid (Vial) IVP 2 mg Q2H PRN Administration PAIN 8-10 Lactated Ringer's 1,000 mls @ 100 mls/hr 03/28/18 16:00 03/29/18 06:57 Lr IV 0 mls/hr .Q10H [facility] Infusion Vancomycin HCl 2 gm/ Sodium 500 mls @ 250 mls/hr 03/28/18 23:00 03/29/18 06:52 Chloride IV 250 mls/hr Q8H KAREN Administration Ibuprofen 600 mg 03/28/18 14:15 03/28/18 22:07 Motrin PO 600 mg Q6HR PRN Administration Pain 1 to 4 Ketorolac Tromethamine 30 mg 03/28/18 15:39 03/29/18 04:56 Toradol Inj (30mg) IVP 04/02/18 15:38 30 mg Q6HR PRN Administration PAIN Sodium Chloride 10 ml 03/28/18 17:00 03/29/18 00:32 Normal Saline Flush 0.9% IVP Not Given 0100,0900,1700 [facility] - Physical Exam Wound/Incisions: positive: Erythema improving Extremities: positive: Joint swelling Neurologic/Psychiatric: positive: Oriented x3, CN's nml (2-12), Motor nml, Sensation nml Impression/Plan - Problem List Problem List: Pt is showing improvement. Less pain and erythema evident Culture from Infrapatellar bursa showing Gm +. Knee joint fluid and culture negative Plan to continue IV Abx. Mobilize patient with PT assist.
[2018-03-29] MEDS: POLYETHYLENE GLYCOL 3350 17 GM PACKET PO SCH (08:50)
[2018-03-29] MEDS: IBUPROFEN 600 MG TABLET PO PRN ×3 (08:51→20:32)
[2018-03-29] MEDS: SENNA 8.6 MG TABLET PO SCH ×2 (08:51→08:53)
[2018-03-29] MEDS: FAMOTIDINE 20 MG TABLET PO SCH ×2 (08:54→20:32)
[2018-03-29] MEDS: DOCUSATE SODIUM 250 MG CAPSULE PO SCH (08:54)
--- NOTE | 2018-03-29 11:38 | PROVIDER PROGRESS NOTE ---
Subjective - Prog Note Date Prog Note Date: 03/29/18 Prog Note Time: 11:36 - Subjective Pt reports feeling: Improved Subjective: Patient with improved left knee swelling with associated pain was amble to weight bear and shower and go to bathroom today. On IV vanco montx. Denies fevers, chest pain, sob, /GI symptoms or MP rash. Current Medications - Current Medications Current Medications: Active Medications Hydrocodone Bitart/Acetaminophen ([place] 5/325) 1 tab PO Q4HR PRN PRN Reason: Pain 5 to 7 Last Admin: 03/29/18 08:51 Dose: 1 tab Albuterol () 2.5 mg INH RTQ4H PRN PRN Reason: Wheezing Docusate Sodium (Colace 250mg Capsule) 250 - 500 mg PO DAILY [facility] Last Admin: 03/29/18 08:54 Dose: 250 mg Famotidine (Pepcid) 20 mg PO BID [facility] Last Admin: 03/29/18 08:54 Dose: 20 mg Heparin Sodium (Porcine) () 5,000 unit SUBQ Q8H [facility] Last Admin: 03/29/18 06:51 Dose: 5,000 unit Hydralazine HCl (Apresoline Inj) 10 mg IVP Q4HR PRN PRN Reason: SBP>160 or DBP>100 Hydromorphone HCl (Dilaudid (Vial)) 2 mg IVP Q2H PRN PRN Reason: PAIN 8-10 Last Admin: 03/28/18 21:06 Dose: 2 mg Lactated Ringer's (Lr) 1,000 mls @ 100 mls/hr IV .Q10H [facility] Last Infusion: 03/29/18 06:57 Dose: 0 mls/hr Vancomycin HCl 2 gm/ Sodium (Chloride) 500 mls @ 250 mls/hr IV Q8H [facility] Last Infusion: 03/29/18 08:58 Dose: Infused Ibuprofen (Motrin) 600 mg PO Q6HR PRN PRN Reason: Pain 1 to 4 Last Admin: 03/29/18 08:51 Dose: 600 mg Ketorolac Tromethamine (Toradol Inj (30mg)) 30 mg IVP Q6HR PRN PRN Reason: PAIN Stop: 04/02/18 15:38 Last Admin: 03/29/18 10:49 Dose: 30 mg Ondansetron HCl (Zofran Odt) 4 mg TL Q6HR PRN PRN Reason: Nausea / Vomiting Polyethylene Glycol (Miralax) 17 gm PO DAILY [facility] Last Admin: 03/29/18 08:50 Dose: 17 gm Prochlorperazine Edisylate (Compazine Inj) 10 mg IVP Q6HR PRN PRN Reason: Nausea / Vomiting Senna (Senokot) 8.6 - 17.2 mg PO DAILY [facility] Last Admin: 03/29/18 08:53 Dose: 8.6 mg Sodium Chloride (Normal Saline Flush 0.9%) 10 ml IVP PRN PRN PRN Reason: NEEDED PER PROVIDER ORDERS Sodium Chloride (Normal Saline Flush 0.9%) 10 ml IVP 0100,0900,1700 [facility] Last Admin: 03/29/18 10:53 Dose: 20 ml Zolpidem Tartrate (Ambien) 5 mg PO QPM PRN PRN Reason: Insomnia Acetaminophen 1,000 mg PO Q8H PRN 03/28/18 Albuterol Sulfate [Proair Hfa Inhaler] 2 puffs INH Q4H PRN 03/28/18 Ibuprofen 800 mg PO Q8H PRN 03/28/18 Objective - Vital Signs/Intake & Output Reviewed Vital Signs: Yes Vital Signs: Vital Signs x48h Temp Pulse Resp BP Pulse Ox 03/29/18 10:45 36.6 C 86 16 133/78 H 97 Intake & Output: Intake & Output 03/26/18 03/27/18 03/28/18 03/29/18 23:59 23:59 23:59 23:59 Intake Total 1850 2601.667 Output Total 775 1300 Balance 1075 1301.667 - Objective General Appearance: positive: No acute distress, Other (obese) Neck: positive: Nml inspection. negative: Lymphadenopathy (R), Lymphadenopathy (L), Swelling/bruising Respiratory: positive: Chest non-tender, No respiratory distress Cardiovascular: positive: Regular rate & rhythm, No murmur, No gallop. negative: Irregularly irregular, Gallop/S4 Peripheral Pulses: 2+ Femoral (R), 2+ Femoral (L), 2+ Dorsalis pedis (R), 2+ Dorsalis pedis (L) Skin: positive: Warm, Other (Left knee medial aspect is improved erythema.) Extremities: positive: No pedal edema, Other. negative: Calf tenderness ( Tenderness over patella with pain on movement.) Neurologic/Psychiatric: positive: Motor nml, Sensation nml - Lab Results Fish Bones: 03/29/18 05:10 03/29/18 05:10 Other Labs: Lab Results x24hrs 03/29/18 03/29/18 03/28/18 Range/Units 05:10 05:10 13:17 WBC 10.4 (4.8-10.8) x10^3/uL RBC 4.58 L (4.70-6.10) 10^6/uL Hgb 13.7 L (14.0-18.0) g/dL Hct 40.2 L (42.0-52.0) % MCV 87.9 (80.0-94.0) fL MCH 30.0 (27.0-31.0) pg MCHC 34.1 (32.0-36.0) g/dL RDW 13.0 (12.0-15.0) % Plt Count 185 (130-450) 10^3/uL MPV 8.6 (7.4-11.4) fL Neut # (Auto) 6.4 (1.5-6.6) 10^3/uL Lymph # (Auto) 2.2 (1.5-3.5) 10^3/uL [place] # (Auto) 1.1 H (0.0-1.0) 10^3/uL Eos # (Auto) 0.5 (0.0-0.7) 10^3/uL Baso # (Auto) 0.1 (0.0-0.1) 10^3/uL Absolute Nucleated RBC 0.01 x10^3/uL Nucleated RBC % 0.1 /100WBC ESR (0-15) mm/Hr Sodium 140 (135-145) mmol/L Potassium 4.0 (3.5-5.0) mmol/L Chloride 108 (101-111) mmol/L Carbon Dioxide 27 (21-32) mmol/L Anion Gap 5.0 L (6-13) BUN 12 (6-20) mg/dL Creatinine 0.7 (0.6-1.2) mg/dL Estimated GFR (MDRD) 137 (>89) Glucose 119 H (70-100) mg/dL Calcium 8.6 (8.5-10.3) mg/dL Total Bilirubin 0.5 (0.2-1.0) mg/dL AST 17 (10-42) IU/L ALT 29 (10-60) IU/L Alkaline Phosphatase 64 (42-121) IU/L C-Reactive Protein (0-1.0) mg/dL Total Protein 6.4 L (6.7-8.2) g/dL Albumin 3.4 (3.2-5.5) g/dL Globulin 3.0 (2.1-4.2) g/dL Albumin/Globulin Ratio 1.1 (1.0-2.2) Fluid Source Fluid Color Fluid Clarity Fluid WBC /mm^3 Fluid RBC /mm^3 Fluid Neutrophils % % Fluid Lymphocytes % Fluid Monocytes % % Fld Mesothelial Cell % Fluid Crystals NONE SEEN (N) 03/28/18 03/28/18 03/28/18 Range/Units 13:17 11:15 11:15 WBC (4.8-10.8) x10^3/uL RBC (4.70-6.10) 10^6/uL Hgb (14.0-18.0) g/dL Hct (42.0-52.0) % MCV (80.0-94.0) fL MCH (27.0-31.0) pg MCHC (32.0-36.0) g/dL RDW (12.0-15.0) % Plt Count (130-450) 10^3/uL MPV (7.4-11.4) fL Neut # (Auto) (1.5-6.6) 10^3/uL Lymph # (Auto) (1.5-3.5) 10^3/uL [place] # (Auto) (0.0-1.0) 10^3/uL Eos # (Auto) (0.0-0.7) 10^3/uL Baso # (Auto) (0.0-0.1) 10^3/uL Absolute Nucleated RBC x10^3/uL Nucleated RBC % /100WBC ESR 20 H (0-15) mm/Hr Sodium (135-145) mmol/L Potassium (3.5-5.0) mmol/L Chloride (101-111) mmol/L Carbon Dioxide (21-32) mmol/L Anion Gap (6-13) BUN (6-20) mg/dL Creatinine (0.6-1.2) mg/dL Estimated GFR (MDRD) (>89) Glucose (70-100) mg/dL Calcium (8.5-10.3) mg/dL Total Bilirubin (0.2-1.0) mg/dL AST (10-42) IU/L ALT (10-60) IU/L Alkaline Phosphatase (42-121) IU/L C-Reactive Protein 9.6 H (0-1.0) mg/dL Total Protein (6.7-8.2) g/dL Albumin (3.2-5.5) g/dL Globulin (2.1-4.2) g/dL Albumin/Globulin Ratio (1.0-2.2) Fluid Source SYNOVIAL Fluid Color YELLOW Fluid Clarity CLEAR Fluid WBC 77 /mm^3 Fluid RBC 50 /mm^3 Fluid Neutrophils % 12 % Fluid Lymphocytes % 17 Fluid Monocytes % 71 % Fld Mesothelial Cell % Not Reportable Fluid Crystals (N) - Diagnostic Imaging Diagnostic Imaging Results: positive: Final report reviewed ABX Reporting Has patient been on IV antibiotics over the past 48 hours?: Yes Assessment/Plan - Problem List (1) Cellulitis of knee, left Impression: Likely self-inoculated with constantly being on knees and had maybe an abrasion. MRSA to nares negative. Continue with montx with IV vanco to cover for community MRSA/MSSA. Sensitivities to follow. Patient with coexitent septic bursitis that is staph sp. (2) Septic prepatellar bursitis of left knee Impression: Suspected Community-acquired staph likely, MRSA/MSSA; Synovial fluid gram stain and culture shows Staphylococcus sp, sensitivities to follow. IV vancomycin for now. Uncomplicated septic bursitis to receive a total of 7-10 days Abx, would benefit from continue IV abx as oral abx have 40-50% cure rate if treated as outpatient. Pain control to continue. Will follow cultures to ID organism. (3) Left anterior knee pain Impression: Sec to septic bursitis/cellulitis with no evidence of sepsis or septic joint s/p arthrocentesis with fluid analysis. PT for mobility and disposition.
[2018-03-29] MEDS ORDERED: VANCOMYCIN INJ 2 GM in SODIUM CHLORIDE 0.9% 500 ML IV SCH (12:00)
[2018-03-29] MEDS ORDERED: ALPRAZolam 0.25 MG TABLET PO PRN (14:18)
[2018-03-29 14:38] LABS: VANCOMYCIN,TROUGH 13.5 ug/mL (10.0-20.0)
[2018-03-30] MEDS: SODIUM CHLORIDE FLUSH 0.9% 10 ML SYRINGE IVP SCH ×2 (00:59→08:44)
[2018-03-30] MEDS: HYDROcod/ACETAM 5/325 MG TABLET PO PRN ×2 (01:58→09:40)
[2018-03-30 05:47] LABS: BASOPHILS # (AUTO) 0.1 10^3/uL (0.0-0.1); EOSINOPHILS # (AUTO) 0.5 10^3/uL (0.0-0.7); EOSINOPHILS % (AUTO) 5.9 %; HGB - HEMOGLOBIN 12.7 g/dL (14.0-18.0); LYMPHOCYTES # (AUTO) 1.6 10^3/uL (1.5-3.5); LYMPHOCYTES % (AUTO) 19.5 %; MEAN CORPUSCULAR HGB CONC 34.6 g/dL (32.0-36.0); MEAN CORPUSCULAR VOLUME 86.8 fL (80.0-94.0); MEAN PLATELET VOLUME 8.8 fL (7.4-11.4); MONOCYTES # (AUTO) 0.8 10^3/uL (0.0-1.0); NEUTROPHILS # (AUTO) 5.3 10^3/uL (1.5-6.6); NEUTROPHILS % (AUTO) 63.6 %; PLT - PLATELET COUNT 197 10^3/uL (130-450); RED BLOOD COUNT 4.22 10^6/uL (4.70-6.10); RED CELL DISTRIBUTION WIDTH 12.8 % (12.0-15.0); WHITE BLOOD COUNT 8.3 x10^3/uL (4.8-10.8)
[2018-03-30] MEDS: LACTATED RINGERS 1,000 ML IV SCH (06:52)
[2018-03-30 08:13] VITALS: BP 145/88
--- NOTE | 2018-03-30 08:30 | Discharge Plan ---
Discharge Plan Disposition: 01 Home, Self Care Condition: Good Prescriptions: buPROPion [Wellbutrin Xl] 150 mg PO BID #60 tablet Clindamycin HCl [Clindamycin 300MG CAP] 600 mg PO BID #32 capsule Diet: Diabetic Activity Restrictions: Wt Bearing as Tolerated Shower Restrictions: No Driving Restrictions: No No Smoking: If you smoke, Please STOP! Call for help.
--- NOTE | 2018-03-30 08:38 | DISCHARGE SUMMARY ---
"Discharge Summary Admit Date: 03/28/18 Discharge Date: 03/30/18 Discharging Provider: Dr. Hernandez Primary Care Provider: Norberto LEVINE Code Status: Attempt Resuscitation Condition at Discharge: Good Discharge Disposition: 01 Home, Self Care - DIAGNOSES Admission Diagnoses: Acute septic prepatellar bursitis of left knee with associated cellulites and pain Discharge Diagnoses with Status of Each Condition: (1) Cellulitis of knee, left Impression: Improving (2) Septic prepatellar bursitis of left knee s/p arthrocentesis on 03/28/18 with MSSA infection Impression: Improving (3) Tachycardia-Resolved (4) Acute renal insufficiency-Resolved (5) Left anterior knee pain Impression: Improving 6). Tobacco use disorder refusing nicotine replacement tx. 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 Patient was tachy in ED HR 132, non-tachypenic non-hypoxemic and normotensive. Labs shows lytes and renal function preserved. Patient to be admitted for further eval, mgmt and tx. - CONSULTS | PROCEDURES Consultations: Dr Bernal from Ortho Procedures: Arthrocentesis on 03/28/18 w/o complications - HOSPITAL COURSE Hospital Course: Patient was managed with an arthrocentesis done on 03/28 and started on IV empiric merrem and vanco, wound cultures showed MSSA which patient was de- escalated to Clindamycin oral to finish an 8 day course as outpatient. Patient received IV dilaudid prn as well as norco and IV toradol for breakthrough pain. Patient was amble to ambulate via crutches to bathroom and perform ADL's. Patient refused nicotine replacement tx and started on wellbutrin 150 mg po daily. Would advise and community health counselor on smoking cessation. PCP in 1-2 weeks. Avoid contact with left knee and abrasions. - ALLERGIES Allergies/Adverse Reactions: Allergies Allergy/AdvReac Type Severity Reaction Status Date / Time egg Allergy Hives Verified 03/28/18 10:04 Sulfa (Sulfonamide Allergy Unknown Verified 03/28/18 10:03 Antibiotics) - MEDICATIONS Home Medications: Ambulatory Orders Medication Instructions Recorded Confirmed Acetaminophen 1,000 mg PO Q8H PRN 03/28/18 03/28/18 Albuterol Sulfate [Proair Hfa 2 puffs INH Q4H PRN 03/28/18 03/28/18 Inhaler] Ibuprofen 800 mg PO Q8H PRN 03/28/18 03/28/18 Clindamycin HCl [Clindamycin 300MG 600 mg PO BID #32 capsule 03/30/18 CAP] HYDROcod/ACETAM 5/325 [[place] 5/325] 1 tab PO Q4HR PRN #60 tablet 03/30/18 HYDROcodone/ACET 7.5/325 [[place] 1 each PO Q6H PRN #60 tablet 03/30/18 7.5/325] buPROPion [Wellbutrin Xl] 150 mg PO BID #60 tablet 03/30/18 - PHYSICAL EXAM AT DISCHARGE General Appearance: positive: No acute distress Respiratory: positive: Chest non-tender Cardiovascular: positive: Regular rate & rhythm Peripheral Pulses: positive: 2+ Abdomen: positive: Non-tender Extremities: positive: Joint swelling, Other (Left knee mild erythema improved ) - LABS Result Diagrams: 03/30/18 05:29 03/29/18 05:10 - DIAGNOSTIC IMAGING Diagnostic Imaging Results: Final report reviewed (left knee xray and wound culture reviewed) - FOLLOW UP Follow Up: f/U PCP in 1-2 weeks. - TIME SPENT Time Spent in Discharge (Minutes): 35"
[2018-03-30] MEDS: SENNA 8.6 MG TABLET PO SCH (08:43)
[2018-03-30] MEDS: POLYETHYLENE GLYCOL 3350 17 GM PACKET PO SCH (08:44)
[2018-03-30] MEDS: FAMOTIDINE 20 MG TABLET PO SCH (08:44)
[2018-03-30] MEDS: IBUPROFEN 600 MG TABLET PO PRN (08:44)
[2018-03-30] MEDS: DOCUSATE SODIUM 250 MG CAPSULE PO SCH (08:45)
[2018-03-30] MEDS: VANCOMYCIN INJ 2 GM in SODIUM CHLORIDE 0.9% 500 ML IV SCH (08:46)
[2018-03-30] MEDS ORDERED: buPROPion XL 150 MG TABLET PO SCH (09:00)
== END 2018-03-30 09:50 | disposition home or self-care (01) | DRG 558 ==
LOC: ED 09:56 → MS2 14:15
PROVIDERS: ADMIT Family Medicine; ATTEND Family Medicine
DX: M71.162 Other infective bursitis, left knee (principal); L03.116 Cellulitis of left lower limb; N17.9 Acute kidney failure, unspecified; B95.61 Methicillin susceptible Staphylococcus aureus infection as the cause of diseases classified elsewhere; I10 Essential (primary) hypertension; J45.909 Unspecified asthma, uncomplicated; B96.89 Other specified bacterial agents as the cause of diseases classified elsewhere; R00.0 Tachycardia, unspecified; F17.200 Nicotine dependence, unspecified, uncomplicated; E66.9 Obesity, unspecified; Z68.35 Body mass index [BMI] 35.0-35.9, adult; Z79.51 Long term (current) use of inhaled steroids; Z79.1 Long term (current) use of non-steroidal anti-inflammatories (NSAID)
CPT/HCPCS: 20610; 36415; 80048; 80053; 80202; 83605; 85025; 85651; 86140; 87040; 87070; 87081; 87181; 87205; 87491; 87591; 87640; 89051; 89060; 96374; 96375; 96376; 99283; 99284

== ENCOUNTER 2022-09-09 01:58 | Emergency (ER) | payer SELFPAY ==
--- NOTE | 2022-09-09 03:22 | ED Physician Documentation ---
History of Present Illness - Stated complaint Stated Complaint: ALLERGIC REACTION - Chief complaint Chief Complaint: Allergic Rx - History obtained from History obtained from: Patient - History of Present Illness Timing: Today - Additonal information Additional information: 32-year-old male with a history of bee sting allergy has not had a bee sting since childhood and does not remember exactly what type of reaction he has had. He does remember having to go to the emergency department. He took some liquid Benadryl right after this occurred and he has come to the emergency department now with improving symptoms. He has not developed any shortness of breath or lightheadedness. He has not developed hives. The patient stepped on a bee outside at about 1:30 AM Review of Systems Constitutional: denies: Fever Ears: denies: Ear pain Nose: denies: Congestion Throat: denies: Sore throat Respiratory: denies: Dyspnea, Cough GI: denies: Abdominal Pain, Nausea, Vomiting PD PAST MEDICAL HISTORY - Past Medical History Cardiovascular: Hypertension Respiratory: Asthma Neuro: None Endocrine/Autoimmune: None GI: None : None HEENT: None Psych: None Musculoskeletal: None Derm: None - Past Surgical History Past Surgical History: No - Present Medications Home Medications: Ambulatory Orders Medication Instructions Recorded Confirmed Acetaminophen 1,000 mg PO Q8H PRN 03/28/18 03/28/18 Albuterol Sulfate [Proair Hfa 2 puffs INH Q4H PRN 03/28/18 03/28/18 Inhaler] Ibuprofen 800 mg PO Q8H PRN 03/28/18 03/28/18 Clindamycin HCl [Clindamycin 300MG 600 mg PO BID #32 capsule 03/30/18 CAP] HYDROcod/ACETAM 5/325 [[place] 5/325] 1 tab PO Q4HR PRN #60 tablet 03/30/18 HYDROcodone/ACET 7.5/325 [[place] 1 each PO Q6H PRN #60 tablet 03/30/18 7.5/325] buPROPion [Wellbutrin Xl] 150 mg PO BID #60 tablet 03/30/18 - Allergies Allergies/Adverse Reactions: Allergies Allergy/AdvReac Type Severity Reaction Status Date / Time bee venom protein (honey bee) Allergy Hives Verified 09/09/22 02:08 egg Allergy Hives Verified 09/09/22 02:08 Sulfa (Sulfonamide Allergy Unknown Verified 09/09/22 02:08 Antibiotics) - Social History Does the pt smoke?: No Smoking Status: Never smoker Does the pt drink ETOH?: No Does the pt have substance abuse?: No - Immunizations Immunizations are current?: No - POLST Patient has POLST: No POLST Status: Full Code PD ED PE NORMAL - Vitals Vital signs reviewed: Yes (Tachycardic and hypertensive) - General General: Alert and oriented X 3, No acute distress, Well developed/nourished - HEENT HEENT: Atraumatic, PERRL, EOMI - Cardiac Cardiac: No murmur, Other (Tachycardic to 110) - Respiratory Respiratory: No respiratory distress - Abdomen Abdomen: Soft, Non tender - Back Back: No CVA TTP, No spinal TTP - Derm Derm: Normal color, Warm and dry, No rash - Extremities Extremities: No deformity, No edema, Other (There is an area on the right foot plantar surface medial near the calcaneus. This area is erythematous mildly swollen no surrounding erythema no lymphangitic streaking no fluctuance) Results - Vitals Vitals: Vital Signs - 24 hr 09/09/22 02:02 Temperature 36.5 C Heart Rate 118 H Respiratory 22 Rate Blood Pressure 195/105 H O2 Saturation 97 Oxygen O2 Source Room air PD Medical Decision Making - ED course Complexity details: considered differential, d/w patient ED course: 32-year-old male with a bee sting to his right foot has a history of allergy he has treated this prior to arrival with Benadryl and this seems to be working. I offered the patient dexamethasone and he refused. He does have Benadryl at home. He does not appear to have anaphylaxis currently. Departure - Departure Disposition: 01 Home, Self Care Clinical Impression: Bee sting allergy Condition: Stable Instructions: ED Bite Sting Insect Gen Allergic React Follow-Up: [facility] [Provider Group] Comments: Dariusz, it looks like you treated yourself appropriately prior to coming to the emergency department and this allergic reaction appears to be abating. My recommendation is to take 25 mg of Benadryl every 6 hours for the next 2 days.
[2022-09-09 03:43] VITALS: BP 170/102
== END 2022-09-09 03:42 | disposition home or self-care (01) ==
LOC: ED 01:58
DX: T63.441A Toxic effect of venom of bees, accidental (unintentional), initial encounter (principal)
CPT/HCPCS: 99281; 99283